=== PATIENT | male | born 1960 | race Caucasian/White ===

== ENCOUNTER 2023-04-08 07:47 | Observation (INO) | payer MEDICARE, OTHER, SELFPAY ==
[~2023-04-08] VITALS: Ht 172.7 cm; Wt 68.2 kg
[2023-04-08] MEDS ORDERED: ECOT81TA5 PO (08:01)
[2023-04-08] MEDS ORDERED: ISOVUE-370 76% 100ML VIAL As Ordered ONE (08:11)
[2023-04-08 08:29] LABS: BASO # 0.1 10^3/uL (0.0-0.2); BASO % 0.7 % (0.0-1.0); EOS # 0.1 10^3/uL (0.0-0.5); EOS % 0.7 % (0.0-3.0); HEMATOCRIT 44.6 % (42.0-52.0); HEMOGLOBIN 15.1 g/dl (13.5-17.5); LYMPH # 2.3 10^3/uL (1.5-5.0); LYMPH % 16.6 % (24.0-44.0); MEAN CORPUSCULAR HEMOGLOBIN 30.1 pg (27.0-33.0); MEAN CORPUSCULAR HGB CONC 33.9 g/dl (32.0-36.5); MEAN CORPUSCULAR VOLUME 88.8 fl (80.0-96.0); MONO # 1.1 10^3/uL (0.0-0.8); MONO % 7.8 % (2.0-8.0); NEUTROPHILS # 10.1 10^3/uL (1.5-8.5); NEUTROPHILS % 73.9 % (36.0-66.0); PLATELET COUNT, AUTOMATED 302 10^3/uL (150-450); RED BLOOD COUNT 5.02 10^6/uL (4.30-6.10); WHITE BLOOD COUNT 13.6 10^3/uL (4.0-10.0)
[2023-04-08 08:40] LABS: INR 1.03; PROTHROMBIN TIME 13.2 SECONDS (12.5-14.5)
[2023-04-08 08:41] LABS: PARTIAL THROMBOPLASTIN TIME 25.2 SECONDS (24.8-34.2)
[2023-04-08] MEDS ORDERED: MED REC IN PROGRESS XX SCH (09:20)
[2023-04-08] MEDS ORDERED: ASPI-1 PO (09:26)
[2023-04-08] MEDS ORDERED: HOME MED LIST COMPLETE! XX SCH (09:35)
[2023-04-08 11:33] LABS: CHOLESTEROL RISK RATIO 4.52 (<5); HDL CHOLESTEROL 46.2 MG/DL (>40); NON-HDL-C 162.8 MG/DL
[2023-04-08 12:55] VITALS: BP 160/99; TEMP 98.8; O2SAT 100
[2023-04-08] MEDS: **hydrALAZINE HCL** 25 MG TAB PO SCH ×2 (14:09→17:03)
[2023-04-08] MEDS: ASPIRIN 81MG ENTERIC TABLET PO SCH (14:11)
[2023-04-08 14:38] VITALS: BP 170/96; TEMP 98.1; O2SAT 100
[2023-04-08 17:02] VITALS: BP 162/70
[2023-04-08] MEDS: amLODIPine 5 MG TAB PO SCH (20:07)
[2023-04-08] MEDS ORDERED: ATORVASTATIN 20 MG TAB PO SCH (21:00)
[2023-04-08 21:55] VITALS: BP 150/76; TEMP 98.4; O2SAT 98
[2023-04-09] MEDS: **hydrALAZINE HCL** 25 MG TAB PO SCH ×2 (05:37)
[2023-04-09 05:54] LABS: BASO # 0.1 10^3/uL (0.0-0.2); BASO % 0.7 % (0.0-1.0); EOS # 0.1 10^3/uL (0.0-0.5); EOS % 1.6 % (0.0-3.0); HEMATOCRIT 43.7 % (42.0-52.0); HEMOGLOBIN 14.7 g/dl (13.5-17.5); LYMPH # 2.2 10^3/uL (1.5-5.0); LYMPH % 25.4 % (24.0-44.0); MEAN CORPUSCULAR HEMOGLOBIN 29.6 pg (27.0-33.0); MEAN CORPUSCULAR HGB CONC 33.6 g/dl (32.0-36.5); MEAN CORPUSCULAR VOLUME 87.9 fl (80.0-96.0); MONO # 0.9 10^3/uL (0.0-0.8); MONO % 10.1 % (2.0-8.0); NEUTROPHILS # 5.3 10^3/uL (1.5-8.5); PLATELET COUNT, AUTOMATED 271 10^3/uL (150-450); RED BLOOD COUNT 4.97 10^6/uL (4.30-6.10); WHITE BLOOD COUNT 8.6 10^3/uL (4.0-10.0)
[2023-04-09 06:00] VITALS: BP 148/90; TEMP 97.7; O2SAT 99
[2023-04-09 06:22] LABS: ALBUMIN 3.7 G/DL (3.2-5.2); ALKALINE PHOSPHATASE 61 U/L (46-116); ALT/SGPT 12 U/L (7.0-40); AST/SGOT 9 U/L (<34); BILIRUBIN,TOTAL 0.6 MG/DL (0.3-1.2); BLOOD UREA NITROGEN 7 MG/DL (9-23); CARBON DIOXIDE LEVEL 22 MMOL/L (20-31); CHLORIDE LEVEL 105 MMOL/L (98-107); CREATININE FOR GFR 0.68 MG/DL (0.70-1.30); GLOMERULAR FILTRATION RATE > 60.0 (>49); GLUCOSE, FASTING 102 MG/DL (74-106); POTASSIUM SERUM 4.2 MMOL/L (3.5-5.1); SODIUM LEVEL 135 MMOL/L (136-145); TOTAL PROTEIN 6.6 G/DL (5.7-8.2)
[2023-04-09] MEDS ORDERED: ATOR1TAB21 PO (06:35)
[2023-04-09] MEDS ORDERED: AMLO1TAB24 PO (06:35)
[2023-04-09] MEDS: ASPIRIN 81MG ENTERIC TABLET PO SCH (08:40)
[2023-04-09 08:41] VITALS: BP 141/90
[2023-04-09] MEDS: amLODIPine 5 MG TAB PO SCH (08:41)
[2023-04-09] MEDS ORDERED: ENOXAPARIN 40MG/0.4ML SYRINGE (J1650 PER 10MG) SC SCH (09:00)
== END 2023-04-09 10:06 | disposition home or self-care (01) ==
LOC: EDBD 07:47 → M ED 07:47 → M MSPAV 07:48 → ENRESERV 11:05
PROVIDERS: ADMIT Internal Medicine Nephrology; ATTEND Internal Medicine Nephrology
DX: G45.9 Transient cerebral ischemic attack, unspecified (principal); I10 Essential (primary) hypertension; I25.10 Atherosclerotic heart disease of native coronary artery without angina pectoris; I25.2 Old myocardial infarction; Z98.61 Coronary angioplasty status; E78.5 Hyperlipidemia, unspecified; F17.218 Nicotine dependence, cigarettes, with other nicotine-induced disorders; Z79.82 Long term (current) use of aspirin; Z79.899 Other long term (current) drug therapy
CPT/HCPCS: 36415; 70450; 70496; 70498; 70551; 71045; 80047; 80053; 80061; 84484; 85025; 85610; 85730; 87635; 93005; 93041; 93306; 94760; 96372; 99285; J1650; Q9967